=== PATIENT | female | born 1980 | race Caucasian/White ===

== ENCOUNTER 2021-10-13 16:01 | Inpatient (IN) | payer OTHER ==
[~2021-10-13] VITALS: Ht 160 cm; Wt 63.7 kg
[2021-10-13 17:08] LABS: BASOPHILS ABSOLUTE AUTO 0.05 K/mm3 (0.00-0.23); BASOPHILS PERCENT AUTO 1 % (0-2); EOSINOPHILS ABSOLUTE AUTO 0.13 K/mm3 (0.00-0.68); EOSINOPHILS PERCENT AUTO 2 % (0-6); Hemoglobin 10.4 g/dL (11.5-16.0); IMMATURE GRAN ABSOLUTE AUTO 0.22 K/mm3 (0.00-0.10); IMMATURE GRAN PERCENT AUTO 3 % (0-1); LYMPHOCYTES ABSOLUTE AUTO 1.35 K/mm3 (0.84-5.20); LYMPHOCYTES PERCENT AUTO 17 % (21-46); MONOCYTES ABSOLUTE AUTO 0.52 K/mm3 (0.16-1.47); MONOCYTES PERCENT AUTO 7 % (4-13); Mean Corpuscular HGB 27.5 pg (26.0-34.0); Mean Corpuscular HGB Conc 32.5 g/dL (31.5-36.5); Mean Corpuscular Volume 85 fL (80-100); Mean Platelet Volume 10.4 fL (9.1-12.4); NEUTROPHILS ABSOLUTE AUTO 5.72 K/mm3 (1.96-9.15); NEUTROPHILS PERCENT AUTO 72 % (41-73); Platelet Count 362 K/mm3 (150-400); RDW Coefficient Variation 14.5 % (11.7-14.2); RDW Standard Deviation 44.7 fL (35.1-46.3); Red Blood Cell Count 3.78 M/mm3 (3.80-5.20); White Blood Cell Count 7.99 K/mm3 (4.00-11.30)
[2021-10-13 17:40] LABS: Magnesium, Blood 2.4 mg/dL (1.6-2.4)
[2021-10-13 17:55] LABS: Albumin, Blood 2.9 g/dL (3.4-5.0); Albumin/Globulin Ratio 0.8 (0.8-1.8); Bilirubin, Total 0.4 mg/dL (0.1-1.0); Globulin, Blood 3.5 g/dL (2.2-4.0); Phosphorus, Blood 6.7 mg/dL (2.5-4.9); Potassium, Blood 4.3 mmol/L (3.5-5.5); Total Protein, Blood 6.4 g/dL (6.4-8.2)
--- NOTE | 2021-10-13 19:13 | NUR ---
SHIFT SUMMARY PATIENT IS ALERT AND ORIENTED X4. PATIENT IS A DIRECT ADMIT FROM [facility] IN [place]. PATIENT IS BEING ADMITTED FOR ACUTE RENAL FAILURE. PATIENT HAS COMPLAINED OF PAIN IN FLANK AREA. PATIENT IS ON TELE, NORMAL SINUS RHYTHM. PATIENT HAS HAD NO COMPLAINTS OF SOB, PATIENT DOES REPORT NAUSEA BUT NO VOMITTING. VITAL SIGNS REVIEWED. BED IN LOCKED AND LOWEST POSITION. CALL LIGHT IN PLACE. SHIFT REPORT GIVEN.
[2021-10-13] MEDS ORDERED: HYDROCODONE-AC1 EAC5 PO (20:12)
[2021-10-13 21:45] LABS: Source, Urine Clean Catch
[2021-10-13 21:57] LABS: Bilirubin, Urine Neg (Neg); Blood, Urine 3+ (Neg); Glucose Qualitative, Urine Neg (Neg); Ketones, Urine Neg (Neg); Leukocyte Esterase, Urine Neg (Neg); Nitrite, Urine Neg (Neg); Protein, Urine 1+ (Neg); Urobilinogen, Urine NORM (Normal)
[2021-10-13 23:22] LABS: Appearance, Urine Hazy (Clear); Color, Urine Yellow (P-Yellow)
[2021-10-13 23:28] LABS: Bacteria Few /hpf; Granular Casts 0-2 /lpf (0); Squamous Epithelial Cells Few /hpf (Few)
[2021-10-14 05:13] LABS: Hematocrit 27.5 % (33.0-51.0)
[2021-10-14 05:58] LABS: CPK Creatine Kinase 16 U/L (26-193); Magnesium, Blood 2.2 mg/dL (1.6-2.4)
[2021-10-14 06:12] LABS: Albumin, Blood 2.4 g/dL (3.4-5.0); Anion Gap 10 mmol/L (6-16); Blood Urea Nitrogen 97 mg/dL (8-24); Bun/Creatinine Ratio 8.2 (12.0-20.0); CO2, Blood 21 mmol/L (21-32); Calcium, Blood 8.2 mg/dL (8.5-10.1); Chloride, Blood 109 mmol/L (98-108); Glomerular Filtration Rate 4 (60-); Glucose, Blood 116 mg/dL (70-99); Phosphorus, Blood 6.8 mg/dL (2.5-4.9); Potassium, Blood 4.5 mmol/L (3.5-5.5); Sodium, Blood 140 mmol/L (136-145)
--- NOTE | 2021-10-14 06:41 | NUR ---
41 year old Female with lupsus sle dx 3.5 years ago has AKF with critical high creatine 12.0 on admit & despite bicarb at 75 ml hr she still has critical high creatine 11.90 this am. PT has abd pain flank pain nausea. thor with zofran x 1 started protonix 40 mg Q day , PRN almag for heartburn x 1 & norco 5/325 mg tab 1 q 6 hrs prn given with mild helpful effect. Tyl 650 mg po x 1 for persistant headache pain with helpful effect. PT also has rale folliculitis disease & had recently tried clindamycin & riphamphin to tx. Recent new tattoos.
--- NOTE | 2021-10-14 10:51 | NUR ---
Echocardiogram completed.
[2021-10-14] MEDS ORDERED: CELEXA40 M1 PO (16:36)
--- NOTE | 2021-10-14 18:32 | NUR ---
DAYSHIFT SUMMARY Pt resting in bed all thift, c/o nausea no emesis noted, and severe flank, abdomen, & migraine. PRN hydrocodone/tylenol given, pt reports uneffective. Bicabr IV fluids infusing, via left hand/IV. Phoslo gels given TID. Tele in placed. Vitals stable.
[2021-10-14 22:13] LABS: Eosinophils-Raw #,Urine 0
[2021-10-15 04:53] LABS: Hemoglobin 9.3 g/dL (11.5-16.0)
[2021-10-15 05:26] LABS: Magnesium, Blood 2.2 mg/dL (1.6-2.4)
[2021-10-15 05:33] LABS: Albumin, Blood 2.6 g/dL (3.4-5.0); Anion Gap 11 mmol/L (6-16); Blood Urea Nitrogen 98 mg/dL (8-24); Bun/Creatinine Ratio 8.4 (12.0-20.0); CO2, Blood 22 mmol/L (21-32); Calcium, Blood 8.5 mg/dL (8.5-10.1); Chloride, Blood 106 mmol/L (98-108); Glomerular Filtration Rate 4 (60-); Glucose, Blood 100 mg/dL (70-99); Phosphorus, Blood 7.1 mg/dL (2.5-4.9); Potassium, Blood 4.7 mmol/L (3.5-5.5); Sodium, Blood 139 mmol/L (136-145)
--- NOTE | 2021-10-15 05:54 | NUR ---
41 year old Female with lupus & rare follicular disease continues with slowly declining creatinine level from 12.0 to 11.60 with several days of treatments. PT tolerating some diet craving spicy food but snacking. Reports no BM x 13 days abd sl firm & distended. Passing some flatus. Medicated for flank & upper abd pain & kpad used. Medicated x 1 for nausea. On BID IV protonix.
[2021-10-15 07:05] LABS: Amylase, Blood 53 U/L (25-115)
--- NOTE | 2021-10-15 09:46 | NUR ---
PATIENT COMPLAINING OF NAUSEA AND PAIN. MEDICATED WITH IV ZOFRAN. GOING TO GIVE IT TIME TO KICK IN THEN GO BACK TO ASSESS PAIN TO GIVE THE PO NORCO.
[2021-10-15 10:04] LABS: Creatinine, Blood 11.6 mg/dL (0.40-1.00)
--- NOTE | 2021-10-15 11:04 | NUR ---
WENT IN TO CHECK ON PATIENT. SHE STATED THAT THE ZOFRAN DID NOT HELP. PROVIDED HER WITH WARM BLANKETS ANDF ASSISTED HER TO THE BATHROOM. 300MLS OF URINE OUT.
[2021-10-15 12:38] LABS: Creatinine, Blood 11.6 mg/dL (0.40-1.00)
--- NOTE | 2021-10-15 14:47 | NUR ---
PT STILL FEELING NAUSEATED. DOSED HER WITH IV ZOFRAN
--- NOTE | 2021-10-15 18:08 | NUR ---
SHIFT SUMMARY: PATIENT ALERT AND ORIENTED X4. SHE HAS PUT OUT A TOTAL OF 1100MLS OF URINE THIS SHIFT. SHE HAS HAD CONSTANT NAUSEA ALL SHIFT. SHE GOT 2 DOSES OF IV ZOFRAN WHICH HELPED HER SOME. SHE HAS HAD FLANK PAIN BUT COULD NOT TAKE THE PO NORCO DUE TO HER NAUSEA. A NEW BAG OF SODIUM BICARB WAS HUNG AT 1805. PT IV DC'D DUE TO REDNESS AND TENDERNESS. A NEW IV WAS PLACE IN THE LEFT WRIST. SHE HAS BEEN VERY PLEASANT AND COOPERATIVE WITH CARE. BEB IN LOWEST POSITION. CALL LIGHT IN REACH. WILL CONTINUE TO MONITOR TILL END OF SHIFT.
--- NOTE | 2021-10-15 18:21 | NUR ---
PT TO HAVE PERMACATH PLACED IN AM
--- NOTE | 2021-10-15 18:34 | NUR ---
REVIEWED NOTES AND ASSESSMENT DOCUMENTATION CHARTED BY INGRID, STUDENT NURSE AND AGREE WITH HER FINDINGS.
--- NOTE | 2021-10-16 04:16 | NUR ---
patient with VSS on RA overnight. Up independently in the room. Void QS. Patient with abdominal pain and nausea overnight . See MAR. Patient NPO at UT for temp dialysis catheter placement today. Patient states understanding of NPO and upcoming procedure.
[2021-10-16 05:53] LABS: Hematocrit 27.3 % (33.0-51.0); Hemoglobin 9.1 g/dL (11.5-16.0)
[2021-10-16 06:26] LABS: Magnesium, Blood 2.1 mg/dL (1.6-2.4)
[2021-10-16 06:39] LABS: Albumin, Blood 2.4 g/dL (3.4-5.0); Anion Gap 10 mmol/L (6-16); Blood Urea Nitrogen 96 mg/dL (8-24); Bun/Creatinine Ratio 8.6 (12.0-20.0); CO2, Blood 24 mmol/L (21-32); Calcium, Blood 8.4 mg/dL (8.5-10.1); Chloride, Blood 105 mmol/L (98-108); Glomerular Filtration Rate 4 (60-); Glucose, Blood 92 mg/dL (70-99); Phosphorus, Blood 6.8 mg/dL (2.5-4.9); Potassium, Blood 4.6 mmol/L (3.5-5.5); Sodium, Blood 139 mmol/L (136-145)
[2021-10-16 08:12] LABS: COMPLEMENT C3, SERUM 129 mg/dL (82-167)
--- NOTE | 2021-10-16 12:48 | NUR ---
PATIENT REPORTS ALOT OF PAIN WHERE THE PORTACATH WAW INSERTERD, RUNNING UP INTO HER NECK AND ALSO REPORTS BACK PAIN. SHE WAS GIVEN A ROXICODONE FOR MANAGEMENT. PATIENT ATE LUNCH AND DID WELL WITH IT. NO NAUSEA OR VOMITING. AREA OF CATH IS A BIT SWOLLEN. VS HAVE BEEN GOOD.
--- NOTE | 2021-10-16 18:33 | NUR ---
PATIENT PAINFUL WHERE PORT WAS PLACED. VITALS AFTER PROCDURE AND DURING DIALYSIS LOOK GOOD. SHE WILL GO DOWN TO DIALYSIS TOMORROW MORNING AROUND 9AM. SHE HAS COMPLAINTS OF RIGHT HAND FEELING A LITTLE NUMB AND THINKS ITS A BIT SWOLLEN. THIS IS WHERE THE IV IS PLACED AND IT IS PATENT. SHE DID JUST RECIEVE SOME MEDICATION VIA IV, SO SHE AGREED TO WATCH THE AREA FOR A WHILE AND REPORT ANY WORSENING SX. SHE IS ALERT AND ORIENTATED, ALTHOUGH TRYING TO REST QUIETLY. SHE ATE A LITTLE AMOUNT OF DINNER AND TOLERATED THE FOOD.
--- NOTE | 2021-10-17 04:36 | NUR ---
Patient with VSS on RA overnight. Moderate c/o right upper chest pain where her dialysis catheter was placed earlier today. Called and recieved orders for an increase in pain medication. This was effective overnight. patient voiding 800cc overnight. clear yellow. up inpendently in the room. Awaiting dualysis later today.
[2021-10-17 05:33] LABS: Hematocrit 27.7 % (33.0-51.0)
[2021-10-17 05:53] LABS: Albumin, Blood 2.6 g/dL (3.4-5.0); Anion Gap 6 mmol/L (6-16); Blood Urea Nitrogen 56 mg/dL (8-24); Bun/Creatinine Ratio 7.7 (12.0-20.0); CO2, Blood 29 mmol/L (21-32); Calcium, Blood 8.5 mg/dL (8.5-10.1); Chloride, Blood 104 mmol/L (98-108); Creatinine, Blood 7.27 mg/dL (0.40-1.00); Glomerular Filtration Rate 7 (60-); Glucose, Blood 116 mg/dL (70-99); Phosphorus, Blood 5.1 mg/dL (2.5-4.9); Potassium, Blood 4.5 mmol/L (3.5-5.5); Sodium, Blood 139 mmol/L (136-145)
[2021-10-17 07:10] LABS: HBSAG SCREEN Negative (Negative); HCV AB 0.1 (0.0-0.9); HEP A AB, IGM Negative (Negative); HEP B CORE AB, IGM Negative (Negative)
--- NOTE | 2021-10-17 17:10 | NUR ---
PATIENT WAS BROUGHT DOWN TO DIALYSIS THIS AM. TOLERATED WELL. STILL HAVING PAIN IN CLAVICLE AREA WHERE PORT IS PLACED. PAIN MED X 2 TODAY. ATARAX WAS ADDED TO THE MEDICATION LIST AND THIS PRN WAS USED AT 1300 TODAY. PATIENT APPEARD MORE CALM AFTERWARD. SHE HAS HAD COMPANY AND ATE SOME FOOD FROM [employer]. SHE REQUESTED HER CELEXA BE MOVED TO BED TIME, SO THIS WAS DONE. LAST HGB 9.0 HCT 27.2, GFR UP TO 7 (FROM 4). PATIENT APPEARS PALE AND IS FATIGUED. LOOKING FORWARD TO NOT HAVING DIALYSIS TOMORROW.
[2021-10-17 18:10] LABS: ANTI-DSDNA ANTIBODIES 1 IU/mL (0-9)
--- NOTE | 2021-10-18 04:05 | NUR ---
Patient with VSS on RA overnight. Up independently in the room. Voiding clear, yellow urine. Minimal c/o pain at dialysis catheter insertion site. Patient states she feel exhausted and cannot seem to wake up ever since yesterdays dialysis. I reassured her that dialysis takes getting used to and that it would get better. Patient states she is hungry as she was too exhausted to eat all day after dialysis. Snacks provided. Patient worried about her lack of bowel movements. Miralax offered but refused. I suggested she ask for it again with her morning medications. Abdomen soft with normal bowel sounds.
[2021-10-18 05:10] LABS: Hematocrit 28.1 % (33.0-51.0)
[2021-10-18 05:51] LABS: Albumin, Blood 2.8 g/dL (3.4-5.0); Anion Gap 6 mmol/L (6-16); Blood Urea Nitrogen 29 mg/dL (8-24); Bun/Creatinine Ratio 5.9 (12.0-20.0); CO2, Blood 33 mmol/L (21-32); Calcium, Blood 8.9 mg/dL (8.5-10.1); Chloride, Blood 100 mmol/L (98-108); Glomerular Filtration Rate 11 (60-); Glucose, Blood 106 mg/dL (70-99); Magnesium, Blood 2.2 mg/dL (1.6-2.4); Potassium, Blood 4.4 mmol/L (3.5-5.5); Sodium, Blood 139 mmol/L (136-145)
--- NOTE | 2021-10-18 16:47 | NUR ---
SHIFT SUMMARY PT A&O X 4. VSS. SHE STARTED THE SHIFT WITH N/V. MEDICATED WITH ZOFRAN AND AN HOUR LATER WITH PHENERGAN PER EMAR. SHE ALSO C/O R CHEST WALL & SHOULDER PAIN RELATED TO THE TDC SITE. PLACED CALL TO MD REQUESTING IV PAIN MEDS D/T CONTINUED NAUSEA. MD PROVIDED ORDER FOR A SMALL DOSE OF FENTANYL. SHE REFUSED HER MEDS THIS MORNING NOT WANTING TO STIMULATE NAUSEA. SHE FOUND A COMFORTABLE POSITION IN BED TO REMAIN IN AND DID NOT WANT TO MOVE UNTIL THE NAUSEA PASSED. SHE APPEARED TO BE RESTING, EYES CLOSED AND RESP EVEN & UNLABORED UNTIL EARLY AFTERNOON. SHE WAS THEN READY TO TAKE HER MEDS AND ENGAGE MORE WITH STAFF. SHE BEGAN ASKING FOR FOOD. SHE DID TAKE BITES OF HER LUNCH. SHE IS INDEPENDENT IN THE ROOM. NO DIALYSIS WAS SCHEDULED FOR TODAY.
--- NOTE | 2021-10-19 04:43 | NUR ---
Patient with VSS on RA overnight. patient feeling better overnight. Up in bathroom washing up. encouraged her to ambulate out in the galvez. Minimal pain in right chest port insertion site. Voiding clear, yellow urine, QS. Patient oral intake improved overnight without c/o nausea. patient anxious about dialysis today and how she will feel after. I encouraged her to ask for her anti anxiety medications prior to dialysis. patient will DC to home when dialysis can be set up.
[2021-10-19 05:29] LABS: Hematocrit 28.1 % (33.0-51.0); Hemoglobin 8.8 g/dL (11.5-16.0)
[2021-10-19 05:47] LABS: Albumin, Blood 2.8 g/dL (3.4-5.0); Anion Gap 8 mmol/L (6-16); Blood Urea Nitrogen 37 mg/dL (8-24); Bun/Creatinine Ratio 6.6 (12.0-20.0); CO2, Blood 31 mmol/L (21-32); Calcium, Blood 8.8 mg/dL (8.5-10.1); Chloride, Blood 101 mmol/L (98-108); Creatinine, Blood 5.58 mg/dL (0.40-1.00); Glomerular Filtration Rate 9 (60-); Glucose, Blood 107 mg/dL (70-99); Phosphorus, Blood 4.2 mg/dL (2.5-4.9); Potassium, Blood 4.1 mmol/L (3.5-5.5); Sodium, Blood 140 mmol/L (136-145)
[2021-10-19 15:31] LABS: Hematocrit 30.1 % (33.0-51.0); Hemoglobin 9.7 g/dL (11.5-16.0); Mean Corpuscular HGB 28.1 pg (26.0-34.0); Mean Corpuscular HGB Conc 32.2 g/dL (31.5-36.5); Mean Corpuscular Volume 87 fL (80-100); Mean Platelet Volume 10.2 fL (9.1-12.4); Platelet Count 406 K/mm3 (150-400); RDW Coefficient Variation 14.1 % (11.7-14.2); RDW Standard Deviation 43.9 fL (35.1-46.3); Red Blood Cell Count 3.45 M/mm3 (3.80-5.20)
[2021-10-19 15:48] LABS: International Normalized Ratio 0.98; Prothrombin Time Results 10.3 Sec (9.7-11.5)
[2021-10-19 16:14] LABS: BAND PERCENT MAN 1 % (0-8); BASOPHILS PERCENT MAN 0 % (0-2); EOSINOPHILS ABSOLUTE MAN 0.14 K/mm3 (0.00-0.68); EOSINOPHILS PERCENT MAN 2 % (0-6); LYMPHOCYTES ABSOLUTE MAN 1.19 K/mm3 (0.84-5.20); LYMPHOCYTES PERCENT MAN 17 % (21-46); MONOCYTES ABSOLUTE MAN 0.35 K/mm3 (0.16-1.47); MONOCYTES PERCENT MAN 5 % (4-13); NEUTROPHILS ABSOLUTE MAN 5.32 K/mm3 (1.96-9.15); SEG NEUTROPHILS PERCENT MAN 75 % (41-73); TOTAL CELLS COUNTED 100
--- NOTE | 2021-10-19 17:26 | NUR ---
DAYSHIFT SUMMARY Pt had dialysis this morning, reported this session went better & she did not "shake during dialysis". Reports pain at incision site above permacath & permacath. Incision site on right clavicle is CDI, covered with dermabond. Permacath dressing CDI. New IV placed this morning on left/forearm, NS locked. Reports nausea throughout the day, no emesis noted. Zofran & Phenergan given for N/V, PRN effective. Pt reported to MD that pain meds were causing constipation & she was afraid to take them. MD stated pt could try using only tylenol for pain, pt agreed. Later pt requested pain pill for pain, she stated the MD misunderstood her, she wants pain pills, but does not want "IV drugs and pain pills together, they both are too much and knock me out". Reported conversation to MD, Hydrocodone PRN restarted. Dr. Morin called & reported pt will remain hospitalized tonight & kidney biopsy will be done tommorrow. Tele DC'd, adhesive stickers caused redness, small area of skin is irritated & open from adhesive, MD aware. Vitals stable this shift.
--- NOTE | 2021-10-20 04:45 | NUR ---
SHIFT SUMMARY NOC: PT UP AD VIRIDIANA IN ROOM. PT TO HAVE KIDNEY BIOPSY TODAY AT 1500. PT HAS BEEN NPO SINCE MIDNIGHT EXCEPT SIPS WITH MEDS. PT HAS BEEN HAVING SORE THROAT AND RIGHT EAR PAIN. SCANT CLEAR DRAINAGE OUT OF RIGHT EAR PER PATIENT. ICE PACK APPLIED TO EAR AND PRN PAIN MEDICATION GIVEN WITH POSITIVE EFFECT.
[2021-10-20 04:56] LABS: Hemoglobin 9.3 g/dL (11.5-16.0)
[2021-10-20 05:24] LABS: Albumin, Blood 3.1 g/dL (3.4-5.0); Anion Gap 7 mmol/L (6-16); Blood Urea Nitrogen 21 mg/dL (8-24); Bun/Creatinine Ratio 5.3 (12.0-20.0); CO2, Blood 33 mmol/L (21-32); Chloride, Blood 100 mmol/L (98-108); Creatinine, Blood 3.95 mg/dL (0.40-1.00); Glomerular Filtration Rate 14 (60-); Glucose, Blood 94 mg/dL (70-99); Magnesium, Blood 2.1 mg/dL (1.6-2.4); Phosphorus, Blood 4.1 mg/dL (2.5-4.9); Potassium, Blood 4.2 mmol/L (3.5-5.5); Sodium, Blood 140 mmol/L (136-145)
[2021-10-20 09:00] LABS: BASOPHILS ABSOLUTE AUTO 0.08 K/mm3 (0.00-0.23); BASOPHILS PERCENT AUTO 1 % (0-2); EOSINOPHILS ABSOLUTE AUTO 0.22 K/mm3 (0.00-0.68); EOSINOPHILS PERCENT AUTO 3 % (0-6); IMMATURE GRAN ABSOLUTE AUTO 0.05 K/mm3 (0.00-0.10); IMMATURE GRAN PERCENT AUTO 1 % (0-1); LYMPHOCYTES ABSOLUTE AUTO 2.38 K/mm3 (0.84-5.20); LYMPHOCYTES PERCENT AUTO 32 % (21-46); MONOCYTES ABSOLUTE AUTO 0.52 K/mm3 (0.16-1.47); MONOCYTES PERCENT AUTO 7 % (4-13); Mean Corpuscular HGB 28.2 pg (26.0-34.0); Mean Corpuscular HGB Conc 31.4 g/dL (31.5-36.5); Mean Corpuscular Volume 90 fL (80-100); Mean Platelet Volume 10.9 fL (9.1-12.4); NEUTROPHILS ABSOLUTE AUTO 4.23 K/mm3 (1.96-9.15); NEUTROPHILS PERCENT AUTO 57 % (41-73); Platelet Count 433 K/mm3 (150-400); RDW Standard Deviation 45.4 fL (35.1-46.3); Red Blood Cell Count 3.33 M/mm3 (3.80-5.20); White Blood Cell Count 7.48 K/mm3 (4.00-11.30)
[2021-10-20 12:38] LABS: ANA DIRECT Negative (Negative); ANTIMYELOPEROXIDASE (MPO) ABS <9.0 U/mL (0.0-9.0); ANTIPROTEINASE 3 (PR-3) ABS <3.5 U/mL (0.0-3.5); ATYPICAL PANCA <1:20 titer (Neg:<1:20); CYTOPLASMIC (C-ANCA) <1:20 titer (Neg:<1:20); PERINUCLEAR (P-ANCA) <1:20 titer (Neg:<1:20)
--- NOTE | 2021-10-20 16:25 | NUR ---
DAY SHIFT SUMMARY 41 YR OLD FEMALE PT WITH ACUTE KIDNEY FAILURE. PT WENT FOR RENAL BIOPSY THIS SHIFT, HEPARIN HELD. BIOPSY AND FOLLOW UP SCAN COMPLETE. A/O X4 INDEPENDENT IN ROOM. MEDICATED FOR PAIN PER EMAR, C/O PAIN TO RT FLANK AREA (SITE OF BIOPSY) AND TO RIGHT SIDE OF NECK INTO EAR (SITE OF PERMACATH FOR DIALYSIS - RECENTLY PLACED). PT ON RA AND A REGULAR DIET POST PROCEEDURE. CALL LIGHT WITHIN REACH AND ABLE TO CALL APPROPRIATELY.
[2021-10-21 04:58] LABS: BASOPHILS ABSOLUTE AUTO 0.05 K/mm3 (0.00-0.23); BASOPHILS PERCENT AUTO 1 % (0-2); EOSINOPHILS ABSOLUTE AUTO 0.17 K/mm3 (0.00-0.68); EOSINOPHILS PERCENT AUTO 2 % (0-6); Hematocrit 32.4 % (33.0-51.0); Hemoglobin 10.4 g/dL (11.5-16.0); IMMATURE GRAN ABSOLUTE AUTO 0.06 K/mm3 (0.00-0.10); IMMATURE GRAN PERCENT AUTO 1 % (0-1); LYMPHOCYTES ABSOLUTE AUTO 1.35 K/mm3 (0.84-5.20); LYMPHOCYTES PERCENT AUTO 17 % (21-46); MONOCYTES ABSOLUTE AUTO 0.67 K/mm3 (0.16-1.47); MONOCYTES PERCENT AUTO 9 % (4-13); Mean Corpuscular HGB 28.1 pg (26.0-34.0); Mean Corpuscular HGB Conc 32.1 g/dL (31.5-36.5); Mean Corpuscular Volume 88 fL (80-100); Mean Platelet Volume 10.2 fL (9.1-12.4); NEUTROPHILS ABSOLUTE AUTO 5.45 K/mm3 (1.96-9.15); NEUTROPHILS PERCENT AUTO 70 % (41-73); Platelet Count 403 K/mm3 (150-400); RDW Coefficient Variation 13.9 % (11.7-14.2); White Blood Cell Count 7.75 K/mm3 (4.00-11.30)
[2021-10-21 05:12] LABS: Albumin, Blood 3.3 g/dL (3.4-5.0); Anion Gap 7 mmol/L (6-16); Blood Urea Nitrogen 25 mg/dL (8-24); Bun/Creatinine Ratio 5.8 (12.0-20.0); CO2, Blood 32 mmol/L (21-32); Calcium, Blood 9.5 mg/dL (8.5-10.1); Chloride, Blood 99 mmol/L (98-108); Creatinine, Blood 4.33 mg/dL (0.40-1.00); Glomerular Filtration Rate 13 (60-); Glucose, Blood 93 mg/dL (70-99); Phosphorus, Blood 4.1 mg/dL (2.5-4.9); Potassium, Blood 4.4 mmol/L (3.5-5.5); Sodium, Blood 138 mmol/L (136-145)
--- NOTE | 2021-10-21 06:43 | NUR ---
SHIFT SUMMARY NOC: PT SLEPT MOST OF SHIFT. PRN NORCO GIVEN FOR PAIN TO RIGHT BACK/FLANK KIDNEY BIOPSY SITE. PT WOKE FEELING NAUSEA. PRN ZOFRAN GIVEN WITH SANDWHICH AND SODA. NO ADVERSE EVENTS ON MEDICAL ONCOLOGY PHYSICIAN.
[2021-10-21 15:06] LABS: SARS-Cov-2 (COVID-19) PCR, MMC NEGATIVE (NEGATIVE)
--- NOTE | 2021-10-21 19:23 | NUR ---
PT HAS BEEN RESTING IN BED. SHE RECIEVED DIALYSIS TODAY. THEN TOOK A SHOWER AND CHANGED. SHE IS NOW VERY TIRED AND PAINFUL. MEDICATED PER JUL. SHE IS STILL WAITING TO HEAR WHEN SHE WILL LEAVE AND RECIEVE DIALYSIS. SHE WILL BE GETTING A CHAIR IN [place], BUT PER BLAINE THIS PM SHE WAS TOLD SHE WOULD NOT LEAVE UNTIL NEXT TUESDAY. PT IS ANXIOUS TO RETURN HOME.
--- NOTE | 2021-10-22 05:41 | NUR ---
SHIFT SUMMARY: NO SIGNIFICANT EVENTS ON NOC. PATIENT NAUSEA AND PAIN TREATED PER EMAR. PATIENT VOICED FRUSTRATION REGARDING GETTING DAILYSIS CHAIR AND CONFUSION WITH NICOL VALLEJO. SHE EXPRESSES "I'M TIRED OF BEING COOPED UP IN THE HOSPITAL" PATIENT IS EAGER TO DC AND HAVE OUTPATINET DIALYSIS CHAIR.
[2021-10-22 05:50] LABS: Hematocrit 29.7 % (33.0-51.0); Hemoglobin 9.5 g/dL (11.5-16.0)
[2021-10-22 06:14] LABS: Albumin, Blood 3.1 g/dL (3.4-5.0); Anion Gap 6 mmol/L (6-16); Blood Urea Nitrogen 19 mg/dL (8-24); Bun/Creatinine Ratio 5.9 (12.0-20.0); CO2, Blood 33 mmol/L (21-32); Chloride, Blood 99 mmol/L (98-108); Creatinine, Blood 3.21 mg/dL (0.40-1.00); Glomerular Filtration Rate 18 (60-); Glucose, Blood 84 mg/dL (70-99); Magnesium, Blood 2.1 mg/dL (1.6-2.4); Potassium, Blood 3.9 mmol/L (3.5-5.5); Sodium, Blood 138 mmol/L (136-145)
--- NOTE | 2021-10-22 17:05 | NUR ---
NO ACUTE CHANGES AT THIS TIME. PT DID NOT RECIEVE DIALYSIS TODAY. PT INDEPENDENT IN ROOM AND CALLS APPROPRIATELY. PT HAS HAD PAIN WITH NEW PERMA CATH SITE AND IS TREATED PER EMAR. NO DISTRESS NOTED CALL LIGHT WITHIN REACH WILL CONTINUE TO MONITOR.
--- NOTE | 2021-10-23 05:26 | NUR ---
SHIFT SUMMARY ASSUMED CARE OF PT AROUND 1900. PT IS A/OX4. HEART SOUNDS REGULAR, LUNG SOUNDS CLEAR. PT WAS INDEPENDENT IN ROOM. PT TOOK A SHOWER THIS PM. PT C/O PAIN IN HER CLAVICAL WHERE THE DIALYSIS PORT WAS AND IN HER BACK WHERE THE BIOPSY WAS TAKEN. MEDICATED PER EMAR. PT SLEPT T/O THE NIGHT.
[2021-10-23 05:35] LABS: Hematocrit 29.8 % (33.0-51.0); Hemoglobin 9.3 g/dL (11.5-16.0)
[2021-10-23 05:56] LABS: Albumin, Blood 3.1 g/dL (3.4-5.0); Anion Gap 4 mmol/L (6-16); Blood Urea Nitrogen 26 mg/dL (8-24); Bun/Creatinine Ratio 7.9 (12.0-20.0); CO2, Blood 32 mmol/L (21-32); Calcium, Blood 9.2 mg/dL (8.5-10.1); Chloride, Blood 102 mmol/L (98-108); Creatinine, Blood 3.31 mg/dL (0.40-1.00); Glomerular Filtration Rate 17 (60-); Glucose, Blood 88 mg/dL (70-99); Phosphorus, Blood 4.1 mg/dL (2.5-4.9); Potassium, Blood 3.8 mmol/L (3.5-5.5); Sodium, Blood 138 mmol/L (136-145)
--- NOTE | 2021-10-23 18:43 | NUR ---
SHIFT SUMMARY PATIENT A&OX4. PLEASANT AND COOPERATIVE WITH CARE. C/O PAIN IN BACK, RIGHT EAR AND AT DIALYSIS PORT SITE. MEDICATED PER JUL. RECEIVED DIALYSIS THIS AFTERNOON. TOLERATED WELL BUT TIRED AFTERWARDS. AWAITING CHAIR TIME OUTPATIENT WITH THE PLAN TO D/C ON 10/27. NO SIGNIFICANT EVENTS. WILL CONTINUE TO MONITOR.
--- NOTE | 2021-10-23 19:12 | NUR ---
NURSE NOTE PATIENT STATED IV BEGINNING TO HURT AND THAT SHE WANTS IT TAKEN OUT. PER PATIENT REQUEST IV TAKEN OUT.
--- NOTE | 2021-10-24 04:17 | NUR ---
HELP DESK ASSISTANT SUMMARY HAS BEEN RESTING QUIETLY WITH FEW INTERRUPTIONS. VOICED PAIN OF MEDIPORT SITE. NOTE SLIGHT SWELLING AT INSERTION POINT, BUT OTHERWISE NO NOTED ANOMALIES. NORCO PO ADMINISTERED - APPEARS TO BE TAKING IT ABOUT EVERY 6 HRS. ALERT AND ORIENTED, NO NOTED DECREASED SENSATON OR USE OF ALL 4 EXT. VSS. CALL LIGHT IN REACH. WILL CONT TO MONITOR
[2021-10-24 05:54] LABS: Hematocrit 30.5 % (33.0-51.0); Hemoglobin 9.5 g/dL (11.5-16.0)
[2021-10-24 06:22] LABS: Albumin, Blood 3.1 g/dL (3.4-5.0); Anion Gap 6 mmol/L (6-16); Blood Urea Nitrogen 22 mg/dL (8-24); Bun/Creatinine Ratio 8.7 (12.0-20.0); CO2, Blood 30 mmol/L (21-32); Calcium, Blood 9.3 mg/dL (8.5-10.1); Chloride, Blood 102 mmol/L (98-108); Creatinine, Blood 2.54 mg/dL (0.40-1.00); Glomerular Filtration Rate 24 (60-); Glucose, Blood 95 mg/dL (70-99); Magnesium, Blood 2.3 mg/dL (1.6-2.4); Phosphorus, Blood 3.5 mg/dL (2.5-4.9); Potassium, Blood 4.5 mmol/L (3.5-5.5); Sodium, Blood 138 mmol/L (136-145)
--- NOTE | 2021-10-24 16:50 | NUR ---
SHIFT SUMMARY; NO ACUTE CHANGES IN CONDITION NOTED FOR THIS PATIENT TODAY. SHE DID NOT RECEIVE DIALYSIS TODAY. SHE WILL HAVE DIALYSIS TOMORROW. PATIENT COMPLAINS OF PAIN THIS AM AND AGAIN THIS AFTERNOON. MEDICATED WITH NORCO 2 TABLETS WITH SUCCESS IN DECREASING HER PAIN. SHE IS AO X 4 DURING DAY. COOPERATIVE WITH CARE. VITAL SIGNS ARE WNL. WILL CONTINUE TO MONITOR THIS PATIENT CLOSELY FOR ANY WANTS OR NEEDS UNTIL HAND OFF AT SHIFT CHANGE TO [facility] SHIFT RN.
--- NOTE | 2021-10-25 04:16 | NUR ---
SHIFT SUMMARY NO ACUTE CHANGES THIS SHIFT. AOX4. VSS. DENIES N/V OR DYSPNEA. REPORTS / BURNING PAIN R SIDE NECK & COLLAR BONE WHERE PERMACATH PLACED. MEDICATED 1X c 2 TABS NORCO PER EMAR & PT ABLE TO REST WELL T/O NIGHT. IND IN RM. AWAITING DIALYSIS CHAIR. CALL LIGHT IN REACH. WILL MONITOR.
[2021-10-25 05:50] LABS: BASOPHILS ABSOLUTE AUTO 0.04 K/mm3 (0.00-0.23); BASOPHILS PERCENT AUTO 1 % (0-2); EOSINOPHILS PERCENT AUTO 4 % (0-6); Hematocrit 30.6 % (33.0-51.0); Hemoglobin 9.5 g/dL (11.5-16.0); IMMATURE GRAN ABSOLUTE AUTO 0.06 K/mm3 (0.00-0.10); IMMATURE GRAN PERCENT AUTO 1 % (0-1); LYMPHOCYTES ABSOLUTE AUTO 1.58 K/mm3 (0.84-5.20); LYMPHOCYTES PERCENT AUTO 30 % (21-46); MONOCYTES ABSOLUTE AUTO 0.53 K/mm3 (0.16-1.47); MONOCYTES PERCENT AUTO 10 % (4-13); Mean Corpuscular Volume 90 fL (80-100); NEUTROPHILS ABSOLUTE AUTO 2.89 K/mm3 (1.96-9.15); NEUTROPHILS PERCENT AUTO 55 % (41-73); Platelet Count 273 K/mm3 (150-400); RDW Coefficient Variation 14.6 % (11.7-14.2); Red Blood Cell Count 3.39 M/mm3 (3.80-5.20)
[2021-10-25 06:14] LABS: Albumin, Blood 3.2 g/dL (3.4-5.0); Anion Gap 7 mmol/L (6-16); Blood Urea Nitrogen 30 mg/dL (8-24); Bun/Creatinine Ratio 11.1 (12.0-20.0); CO2, Blood 29 mmol/L (21-32); Calcium, Blood 9.3 mg/dL (8.5-10.1); Chloride, Blood 104 mmol/L (98-108); Glomerular Filtration Rate 22 (60-); Glucose, Blood 95 mg/dL (70-99); Magnesium, Blood 2.3 mg/dL (1.6-2.4); Phosphorus, Blood 3.8 mg/dL (2.5-4.9); Potassium, Blood 4.2 mmol/L (3.5-5.5); Sodium, Blood 140 mmol/L (136-145)
--- NOTE | 2021-10-25 17:47 | NUR ---
SHIFT SUMMARY PT A&O X4 AND IN PLEASENT MOOD. DIALYSIS COMPLETE THIS SHIFT. PT IND IN ROOM W/ STEADY GAIT. PAIN MEDICATED PER EMAR. TOLERATING PO INTAKE WELL. CALL LIGHT W/IN REACH. NO IV. VSS. WAITING OUTPATIENT DIALYSIS CHAIR @ THIS TIME IN [place].
[2021-10-26 05:47] LABS: Hematocrit 31.3 % (33.0-51.0); Hemoglobin 9.8 g/dL (11.5-16.0)
--- NOTE | 2021-10-26 05:47 | NUR ---
SHIFT SUMMARY NO ACUTE CHANGES THIS SHIFT. AOX4. DENIES N/V OR DYSPNEA. REPORTS -12/30 PAIN IN R SIDE OF NECK WHERE PERMACATH IS PLACED, MEDICATED 2X c NORCO & PT ABLE TO SLEEP WELL T/O NIGHT. VSS. PLAN TO DC ON 10/27. CALL LIGHT IN YADY & PT ABLE TO MAKE NEEDS KNOWN.
[2021-10-26 06:35] LABS: Albumin, Blood 3.2 g/dL (3.4-5.0); Anion Gap 7 mmol/L (6-16); Blood Urea Nitrogen 21 mg/dL (8-24); CO2, Blood 31 mmol/L (21-32); Calcium, Blood 9.2 mg/dL (8.5-10.1); Chloride, Blood 101 mmol/L (98-108); Creatinine, Blood 2.09 mg/dL (0.40-1.00); Glomerular Filtration Rate 30 (60-); Glucose, Blood 103 mg/dL (70-99); Magnesium, Blood 2.2 mg/dL (1.6-2.4); Phosphorus, Blood 3.6 mg/dL (2.5-4.9); Sodium, Blood 139 mmol/L (136-145)
--- NOTE | 2021-10-26 08:00 | NUR ---
pt sitting up in bed awake a/ox3, pleasanat and coopertive with care, follows commands well, denies pain except soreness at the permacath site, lungs are clear t/o, on r/a, hrr, voids without diff, skin c/w/d, maew, bhargav, call light in reach.
[2021-10-26] MEDS ORDERED: PANT40 PO (12:10)
[2021-10-26] MEDS ORDERED: Calcium Acetat667 MG PO (12:13)
[2021-10-26] MEDS ORDERED: HYDROCODONE-AC1 EAC7 PO (12:14)
--- NOTE | 2021-10-26 12:30 | NUR ---
PT HAS BEEN DISCHARGED TO HOME, VERBALIZES UNDERSTANDING OF DISCHARGE INSTRUCTIONS, NEW MEDICATIONS CALLED INTO [facility] IN [facility] OR. LEFT VIA WHEELCHAIR WITH ALL BELONGINGS AND HER TRANSPORT PERSON THAT PICKED HER UP.
== END 2021-10-26 12:30 | disposition home or self-care (01) | DRG 674 ==
LOC: EDBD 16:01 → MEDS 16:01
PROVIDERS: Family Medicine; Internal Medicine Nephrology; Nurse Practitioner Acute Care; Student in an Organized Health Care Education/Training Program; ADMIT Hospitalist
PROC: 0JH63XZ Insertion of Tunneled Vascular Access Device into Chest Subcutaneous Tissue and Fascia, Percutaneous Approach (ICD-10-PCS; principal; 2021-10-17)
PROC: 02HV33Z Insertion of Infusion Device into Superior Vena Cava, Percutaneous Approach (ICD-10-PCS; 2021-10-17)
PROC: B5181ZA Fluoroscopy of Superior Vena Cava using Low Osmolar Contrast, Guidance (ICD-10-PCS; 2021-10-17)
PROC: 5A1D70Z Performance of Urinary Filtration, Intermittent, Less than 6 Hours Per Day (ICD-10-PCS; 2021-10-17)
PROC: 0TB03ZX Excision of Right Kidney, Percutaneous Approach, Diagnostic (ICD-10-PCS; 2021-10-20)
DX: N17.0 Acute kidney failure with tubular necrosis (principal); I42.9 Cardiomyopathy, unspecified; E87.2 Acidosis; Z20.822 Contact with and (suspected) exposure to COVID-19; I48.91 Unspecified atrial fibrillation; E86.0 Dehydration; L66.2 Folliculitis decalvans; R19.7 Diarrhea, unspecified; R11.2 Nausea with vomiting, unspecified; D63.1 Anemia in chronic kidney disease; R10.13 Epigastric pain; M32.9 Systemic lupus erythematosus, unspecified; Z90.49 Acquired absence of other specified parts of digestive tract; Z98.51 Tubal ligation status
CPT/HCPCS: 36415; 36558; 50200; 71045; 76770; 76937; 77001; 77012; 80053; 80069; 80074; 81001; 82150; 82550; 82565; 83520; 83690; 83735; 84100; 85007; 85014; 85018; 85025; 85027; 85060; 85610; 85730; 86037; 86038; 86160; 86225; 86317; 87086; 87205; 88305; 88313; 88329; 88346; 88348; 88350; 93306; 97161; 97530; 99152; 99153; A9270; C1750; C1769; C1894; C9113; J0881; J1644; J2250; J2405; J2550; J3010; J7030; J7040; U0004

== ENCOUNTER 2024-06-06 13:51 | Emergency (ER) | payer OTHER ==
[~2024-06-06] VITALS: Ht 160 cm; Wt 61.2 kg
[~2024-06-06 13:51] MED LIST: CELEXA40 M1 PO; Calcium Acetat667 MG PO; HYDROCODONE-AC1 EAC5 PO; HYDROCODONE-AC1 EAC7 PO; PANT40 PO
[2024-06-06 14:32] VITALS: BP 132/90
[2024-06-06 15:16] LABS: BASOPHILS ABSOLUTE AUTO 0.04 K/mm3 (0.00-0.23); BASOPHILS PERCENT AUTO 1 % (0-2); EOSINOPHILS ABSOLUTE AUTO 0.16 K/mm3 (0.00-0.68); EOSINOPHILS PERCENT AUTO 3 % (0-6); Hematocrit 36.2 % (33.0-51.0); Hemoglobin 11.1 g/dL (11.5-16.0); IMMATURE GRAN ABSOLUTE AUTO 0.02 K/mm3 (0.00-0.10); IMMATURE GRAN PERCENT AUTO 0 % (0-1); LYMPHOCYTES ABSOLUTE AUTO 1.42 K/mm3 (0.84-5.20); LYMPHOCYTES PERCENT AUTO 28 % (21-46); MONOCYTES ABSOLUTE AUTO 0.36 K/mm3 (0.16-1.47); MONOCYTES PERCENT AUTO 7 % (4-13); Mean Corpuscular HGB 25.1 pg (26.0-34.0); Mean Corpuscular HGB Conc 30.7 g/dL (31.5-36.5); Mean Corpuscular Volume 82 fL (80-100); Mean Platelet Volume 9.6 fL (9.1-12.4); NEUTROPHILS ABSOLUTE AUTO 3.01 K/mm3 (1.96-9.15); NEUTROPHILS PERCENT AUTO 60 % (41-73); Platelet Count 288 K/mm3 (150-400); RDW Coefficient Variation 12.9 % (11.7-14.2); RDW Standard Deviation 38.4 fL (35.1-46.3); Red Blood Cell Count 4.43 M/mm3 (3.80-5.20); White Blood Cell Count 5.01 K/mm3 (4.00-11.30)
[2024-06-06 15:19] LABS: CORONAVIRUS COVID-19 AG Negative (NEGATIVE); INFLUENZA A AG Negative (NEGATIVE); INFLUENZA B AG Negative (NEGATIVE)
[2024-06-06] MEDS ORDERED: NS 1,000 ML IV SCH (15:30)
[2024-06-06] MEDS ORDERED: Ketorolac Tromethamine 15mg Vial IV ONE (15:35)
[2024-06-06 15:43] LABS: Albumin, Blood 3.3 g/dL (3.4-5.0); Albumin/Globulin Ratio 0.9 (0.8-1.8); Bilirubin, Total 0.4 mg/dL (0.1-1.0); Bun/Creatinine Ratio 17.8 (12.0-20.0); Calcium, Blood 8.7 mg/dL (8.5-10.1); Creatinine, Blood 0.84 mg/dL (0.40-1.00); Globulin, Blood 3.6 g/dL (2.2-4.0); Potassium, Blood 4.4 mmol/L (3.5-5.5); Total Protein, Blood 6.9 g/dL (6.4-8.2)
[2024-06-06] MEDS ORDERED: Morphine Sulfate 4 MG/1 ML Injection IV ONE (16:55)
[2024-06-06 17:40] LABS: Source, Urine Clean Catch
[2024-06-06 17:43] LABS: Appearance, Urine Clear (Clear); Bilirubin, Urine Neg (Neg); Blood, Urine 5+ (Neg); Glucose Qualitative, Urine Neg (Neg); Ketones, Urine Neg (Neg); Leukocyte Esterase, Urine 2+ (Neg); Nitrite, Urine Neg (Neg); Protein, Urine Neg (Neg); Specific Gravity, Urine 1.005 (1.003-1.022); Urobilinogen, Urine NORM (Normal)
[2024-06-06 17:55] LABS: Color, Urine Pale Yellow (P-Yellow)
[2024-06-06 17:56] LABS: Bacteria Few /hpf; Squamous Epithelial Cells Few /hpf (Few)
[2024-06-06] MEDS ORDERED: RX Prepack 6 Tabs Oxycodone 5mg UD ONE (18:45)
[2024-06-06] MEDS ORDERED: PredniSONE 20 MG Tab PO ONE (18:45)
[2024-06-06] MEDS ORDERED: PRED20 PO (18:46)
== END 2024-06-06 19:03 | disposition home or self-care (01) ==
LOC: ER 13:51
PROVIDERS: Physician Assistant
DX: R10.9 Unspecified abdominal pain (principal); M32.14 Glomerular disease in systemic lupus erythematosus; I48.91 Unspecified atrial fibrillation; Z88.0 Allergy status to penicillin; Z88.2 Allergy status to sulfonamides; Z91.040 Latex allergy status; Z79.899 Other long term (current) drug therapy
CPT/HCPCS: 74177; 80053; 81001; 83605; 84703; 85025; 87086; 87428-QW; 96361; 96374-59; 96375; 99284-25; A9270; J1885; J2270; J7030; J7512; Q9967

== ENCOUNTER 2024-06-10 02:53 | Emergency (ER) | payer OTHER ==
[~2024-06-10] VITALS: Ht 160 cm; Wt 62.6 kg
[~2024-06-10 02:53] MED LIST changes: +PRED20 PO
[2024-06-10 03:30] VITALS: BP 144/95
[2024-06-10] MEDS ORDERED: Morphine Sulfate 4 MG/1 ML Injection IV ONE (03:50)
[2024-06-10] MEDS ORDERED: NS 1,000 ML IV SCH (03:50)
[2024-06-10] MEDS ORDERED: Ondansetron HCl 2 MG / ML 2ML Vial IV ONE (03:50)
[2024-06-10 03:52] LABS: Source, Urine Clean Catch
[2024-06-10 04:04] LABS: BASOPHILS ABSOLUTE AUTO 0.07 K/mm3 (0.00-0.23); BASOPHILS PERCENT AUTO 1 % (0-2); EOSINOPHILS ABSOLUTE AUTO 0.22 K/mm3 (0.00-0.68); EOSINOPHILS PERCENT AUTO 2 % (0-6); Hematocrit 33.8 % (33.0-51.0); Hemoglobin 10.5 g/dL (11.5-16.0); IMMATURE GRAN ABSOLUTE AUTO 0.05 K/mm3 (0.00-0.10); IMMATURE GRAN PERCENT AUTO 1 % (0-1); LYMPHOCYTES ABSOLUTE AUTO 2.83 K/mm3 (0.84-5.20); LYMPHOCYTES PERCENT AUTO 31 % (21-46); MONOCYTES ABSOLUTE AUTO 0.85 K/mm3 (0.16-1.47); MONOCYTES PERCENT AUTO 9 % (4-13); Mean Corpuscular HGB 25.2 pg (26.0-34.0); Mean Corpuscular HGB Conc 31.1 g/dL (31.5-36.5); Mean Corpuscular Volume 81 fL (80-100); Mean Platelet Volume 9.7 fL (9.1-12.4); NEUTROPHILS ABSOLUTE AUTO 5.11 K/mm3 (1.96-9.15); NEUTROPHILS PERCENT AUTO 56 % (41-73); Platelet Count 296 K/mm3 (150-400); Red Blood Cell Count 4.17 M/mm3 (3.80-5.20); White Blood Cell Count 9.13 K/mm3 (4.00-11.30)
[2024-06-10 04:06] LABS: Bilirubin, Urine Neg (Neg); Blood, Urine 4+ (Neg); Glucose Qualitative, Urine Neg (Neg); Ketones, Urine Neg (Neg); Leukocyte Esterase, Urine 2+ (Neg); Nitrite, Urine Neg (Neg); Protein, Urine 2+ (Neg); Urobilinogen, Urine NORM (Normal)
[2024-06-10 04:11] LABS: Appearance, Urine Cloudy (Clear); Color, Urine Yellow (P-Yellow)
[2024-06-10 04:18] LABS: Amorphous Mod (0-Heavy); Bacteria Many /hpf; Red Blood Cells, Urine 0-2 /hpf (0-2); Squamous Epithelial Cells Few /hpf (Few); White Blood Cells, Urine TNTC /hpf (0-5)
[2024-06-10 04:18] LABS: Albumin, Blood 3.1 g/dL (3.4-5.0); Albumin/Globulin Ratio 0.9 (0.8-1.8); Bilirubin, Total 0.3 mg/dL (0.1-1.0); Calcium, Blood 8.7 mg/dL (8.5-10.1); Creatinine, Blood 0.72 mg/dL (0.40-1.00); Globulin, Blood 3.3 g/dL (2.2-4.0); Magnesium, Blood 2.1 mg/dL (1.6-2.4); Potassium, Blood 3.5 mmol/L (3.5-5.5); Total Protein, Blood 6.4 g/dL (6.4-8.2)
[2024-06-10] MEDS ORDERED: LevoFLOXacin 750 MG/D5W 150ML 150 ML IV ONE (04:40)
[2024-06-10] MEDS ORDERED: HYDROmorphone HCl/Pf 1MG SYR IV ONE (05:05)
[2024-06-10] MEDS ORDERED: ACET500 PO (05:36)
[2024-06-10] MEDS ORDERED: CIPR500 PO (05:36)
[2024-06-10] MEDS ORDERED: ONDA4 PO (05:37)
[2024-06-10] MEDS ORDERED: Pyridium100 MG PO (06:14)
[2024-06-10] MEDS ORDERED: Phenazopyridine HCl 100 MG Tab PO ONE (06:15)
== END 2024-06-10 06:34 | disposition home or self-care (01) ==
LOC: ER 02:53
PROVIDERS: Emergency Medicine
DX: N12 Tubulo-interstitial nephritis, not specified as acute or chronic (principal); I48.91 Unspecified atrial fibrillation; Z88.0 Allergy status to penicillin; Z88.2 Allergy status to sulfonamides; Z91.040 Latex allergy status; Z88.8 Allergy status to other drugs, medicaments and biological substances
CPT/HCPCS: 74176; 80053; 81001; 81025; 83690; 83735; 85025; A9270; J1171; J1956; J2270; J2405; J7030

== ENCOUNTER → 2024-06-15 | Outpatient (CLI) | payer OTHER ==
[~2024-06-15] MED LIST changes: +ACET500 PO; +CIPR500 PO; +ONDA4 PO; +Pyridium100 MG PO
[2024-06-15 21:12] LABS: Microalbumin, Urine Quant. 20.2 mg/L (0.000-20.000); Protein, Urine Quantitative 12.9 mg/dL (0.0-11.9)
== END | disposition home or self-care (01) ==
LOC: LAB 17:04 → LAB SHORT 17:04 → LAB FUT 06-13 11:35
PROVIDERS: Internal Medicine Nephrology
DX: N18.2 Chronic kidney disease, stage 2 (mild) (principal); D63.1 Anemia in chronic kidney disease; N25.81 Secondary hyperparathyroidism of renal origin; E55.9 Vitamin D deficiency, unspecified; E78.00 Pure hypercholesterolemia, unspecified; R76.9 Abnormal immunological finding in serum, unspecified; R94.5 Abnormal results of liver function studies; R94.6 Abnormal results of thyroid function studies
CPT/HCPCS: 81050; 82043; 82570; 84156

== ENCOUNTER 2024-08-11 07:02 | Emergency (ER) | payer OTHER ==
[~2024-08-11] VITALS: Ht 162.6 cm; Wt 62.1 kg
[2024-08-11] MEDS ORDERED: Ketorolac Tromethamine 30mg Vial IM ONE (09:50)
[2024-08-11] MEDS ORDERED: Dexamethasone Sod Phos 10 MG/ML 1ML VIAL PO ONE (09:50)
[2024-08-11] MEDS ORDERED: HYDROcodone 5-APAP 325 TAB PO ONE (09:50)
[2024-08-11 10:00] VITALS: BP 122/82
[2024-08-11] MEDS ORDERED: Dexamethasone Sod Phos 10 MG/ML 1ML VIAL IV ONE (10:15)
[2024-08-11] MEDS ORDERED: Ketorolac Tromethamine 30mg Vial IV ONE (10:15)
[2024-08-11 10:26] LABS: BASOPHILS ABSOLUTE AUTO 0.05 K/mm3 (0.00-0.23); BASOPHILS PERCENT AUTO 0 % (0-2); EOSINOPHILS ABSOLUTE AUTO 0.25 K/mm3 (0.00-0.68); EOSINOPHILS PERCENT AUTO 2 % (0-6); Hematocrit 32.3 % (33.0-51.0); Hemoglobin 9.7 g/dL (11.5-16.0); IMMATURE GRAN ABSOLUTE AUTO 0.04 K/mm3 (0.00-0.10); IMMATURE GRAN PERCENT AUTO 0 % (0-1); LYMPHOCYTES ABSOLUTE AUTO 1.64 K/mm3 (0.84-5.20); LYMPHOCYTES PERCENT AUTO 15 % (21-46); MONOCYTES ABSOLUTE AUTO 0.68 K/mm3 (0.16-1.47); MONOCYTES PERCENT AUTO 6 % (4-13); Mean Corpuscular HGB 22.6 pg (26.0-34.0); Mean Corpuscular Volume 75 fL (80-100); Mean Platelet Volume 9.1 fL (9.1-12.4); NEUTROPHILS ABSOLUTE AUTO 8.46 K/mm3 (1.96-9.15); NEUTROPHILS PERCENT AUTO 76 % (41-73); Platelet Count 288 K/mm3 (150-400); RDW Coefficient Variation 14.7 % (11.7-14.2); RDW Standard Deviation 39.6 fL (35.1-46.3); White Blood Cell Count 11.12 K/mm3 (4.00-11.30)
[2024-08-11 11:06] LABS: Bun/Creatinine Ratio 21.7 (12.0-20.0); Calcium, Blood 8.3 mg/dL (8.5-10.1); Creatinine, Blood 0.83 mg/dL (0.40-1.00); Potassium, Blood 3.7 mmol/L (3.5-5.5)
[2024-08-11] MEDS ORDERED: METPRE4DP PO (11:18)
[2024-08-11] MEDS ORDERED: HYDR1TAB94 PO (11:18)
== END 2024-08-11 11:51 | disposition home or self-care (01) ==
LOC: ER 07:02
PROVIDERS: Student in an Organized Health Care Education/Training Program
DX: M19.90 Unspecified osteoarthritis, unspecified site (principal); H61.21 Impacted cerumen, right ear; Z88.0 Allergy status to penicillin; Z88.2 Allergy status to sulfonamides; Z91.040 Latex allergy status; Z91.048 Other nonmedicinal substance allergy status; Z79.2 Long term (current) use of antibiotics; Z79.899 Other long term (current) drug therapy; I48.91 Unspecified atrial fibrillation
CPT/HCPCS: 69209; 80048; 85025; 96374-59; 96375-59; 99283-25; A9270; J1100; J1885

== ENCOUNTER 2024-09-29 23:57 | Emergency (ER) | payer OTHER ==
[~2024-09-29] VITALS: Ht 160 cm; Wt 64.9 kg
[~2024-09-29 23:57] MED LIST changes: +HYDR1TAB94 PO; +METPRE4DP PO
[2024-09-30 00:31] LABS: BASOPHILS ABSOLUTE AUTO 0.05 K/mm3 (0.00-0.23); BASOPHILS PERCENT AUTO 1 % (0-2); EOSINOPHILS ABSOLUTE AUTO 0.21 K/mm3 (0.00-0.68); EOSINOPHILS PERCENT AUTO 3 % (0-6); Hematocrit 33.7 % (33.0-51.0); Hemoglobin 9.8 g/dL (11.5-16.0); IMMATURE GRAN ABSOLUTE AUTO 0.03 K/mm3 (0.00-0.10); IMMATURE GRAN PERCENT AUTO 1 % (0-1); LYMPHOCYTES ABSOLUTE AUTO 2.37 K/mm3 (0.84-5.20); LYMPHOCYTES PERCENT AUTO 37 % (21-46); MONOCYTES ABSOLUTE AUTO 0.57 K/mm3 (0.16-1.47); MONOCYTES PERCENT AUTO 9 % (4-13); Mean Corpuscular HGB 22.1 pg (26.0-34.0); Mean Corpuscular HGB Conc 29.1 g/dL (31.5-36.5); Mean Corpuscular Volume 76 fL (80-100); Mean Platelet Volume 9.3 fL (9.1-12.4); NEUTROPHILS ABSOLUTE AUTO 3.15 K/mm3 (1.96-9.15); NEUTROPHILS PERCENT AUTO 49 % (41-73); Platelet Count 286 K/mm3 (150-400); RDW Coefficient Variation 16.3 % (11.7-14.2); RDW Standard Deviation 45.1 fL (35.1-46.3); Red Blood Cell Count 4.43 M/mm3 (3.80-5.20); White Blood Cell Count 6.38 K/mm3 (4.00-11.30)
[2024-09-30 01:03] LABS: Free Thyroxine 0.88 ng/dL (0.70-1.60); Phosphorus, Blood 4.1 mg/dL (2.5-4.9); Thyroid Stimulating Hormone 1.53 uIU/mL (0.360-4.800)
[2024-09-30 01:38] LABS: CORONAVIRUS COVID-19 AG Negative (NEGATIVE); INFLUENZA A AG Negative (NEGATIVE); INFLUENZA B AG Negative (NEGATIVE)
[2024-09-30] MEDS ORDERED: FUROSEMIDE20 MG PO (03:00)
[2024-09-30] MEDS ORDERED: NS 1,000 ML IV SCH (03:10)
[2024-09-30] MEDS ORDERED: Acetaminophen 500 MG Tab PO ONE (03:10)
[2024-09-30 04:30] VITALS: BP 120/90
[2024-09-30 04:44] LABS: Albumin, Blood 3.1 g/dL (3.4-5.0); Albumin/Globulin Ratio 0.9 (0.8-1.8); Bilirubin, Total 0.1 mg/dL (0.1-1.0); Bun/Creatinine Ratio 20.9 (12.0-20.0); Calcium, Blood 8.7 mg/dL (8.5-10.1); Creatinine, Blood 0.77 mg/dL (0.40-1.00); Globulin, Blood 3.3 g/dL (2.2-4.0); Potassium, Blood 4.1 mmol/L (3.5-5.5); Total Protein, Blood 6.4 g/dL (6.4-8.2)
== END 2024-09-30 05:00 | disposition home or self-care (01) ==
LOC: ER 23:57
PROVIDERS: Emergency Medicine; Student in an Organized Health Care Education/Training Program
DX: R55 Syncope and collapse (principal); R53.1 Weakness; R53.83 Other fatigue; I48.91 Unspecified atrial fibrillation; Z88.0 Allergy status to penicillin; Z88.2 Allergy status to sulfonamides; Z91.040 Latex allergy status; Z88.8 Allergy status to other drugs, medicaments and biological substances
CPT/HCPCS: 70450; 71045; 80053; 83690; 83735; 84100; 84439; 84443; 84484; 85025; 87428-QW; 93005; 93010; 96360; 99285-25; A9270; J7030

== ENCOUNTER 2024-12-25 04:52 | Emergency (ER) | payer OTHER ==
[~2024-12-25] VITALS: Ht 162.6 cm; Wt 63.5 kg
[~2024-12-25 04:52] MED LIST changes: +FUROSEMIDE20 MG PO
[2024-12-25] MEDS ORDERED: Ondansetron HCl 2 MG / ML 2ML Vial IV ONE (06:00)
[2024-12-25] MEDS ORDERED: Dexamethasone Sod Phos 10 MG/ML 1ML VIAL PO ONE (06:00)
[2024-12-25] MEDS ORDERED: FentaNYL Citrate 50 MCG/ML 2 ML Injection IV ONE (06:00)
[2024-12-25 06:30] LABS: BASOPHILS ABSOLUTE AUTO 0.03 K/mm3 (0.00-0.23); BASOPHILS PERCENT AUTO 0 % (0-2); EOSINOPHILS ABSOLUTE AUTO 0.10 K/mm3 (0.00-0.68); EOSINOPHILS PERCENT AUTO 1 % (0-6); Hematocrit 34.6 % (33.0-51.0); Hemoglobin 10.5 g/dL (11.5-16.0); IMMATURE GRAN ABSOLUTE AUTO 0.02 K/mm3 (0.00-0.10); IMMATURE GRAN PERCENT AUTO 0 % (0-1); LYMPHOCYTES ABSOLUTE AUTO 1.20 K/mm3 (0.84-5.20); LYMPHOCYTES PERCENT AUTO 17 % (21-46); MONOCYTES ABSOLUTE AUTO 0.65 K/mm3 (0.16-1.47); MONOCYTES PERCENT AUTO 9 % (4-13); Mean Corpuscular HGB Conc 30.3 g/dL (31.5-36.5); Mean Corpuscular Volume 76 fL (80-100); NEUTROPHILS ABSOLUTE AUTO 5.15 K/mm3 (1.96-9.15); NEUTROPHILS PERCENT AUTO 72 % (41-73); NRBC ABSOLUTE 0.00 K/mm3 (0.00-0.02); NRBC Auto 0.0 /100 WBC (0.0-0.2); Platelet Count 240 K/mm3 (150-400); RDW Coefficient Variation 15.7 % (11.7-14.2); RDW Standard Deviation 43.1 fL (35.1-46.3)
[2024-12-25 06:51] LABS: Alanine Aminotransfer (ALT/SGP 14.0 U/L (12-78); Albumin, Blood 3.2 g/dL (3.4-5.0); Albumin/Globulin Ratio 0.9 (0.8-1.8); Anion Gap 8.0 mmol/L (3-11); Aspartate Aminotrans (AST/SGOT 16.0 U/L (12-37); Bilirubin, Total 0.5 mg/dL (0.1-1.0); Blood Urea Nitrogen 17.0 mg/dL (8-24); C-Reactive Protein, High Sens. 4.96 mg/L (0.000-3.000); CO2, Blood 25.0 mmol/L (21-32); Calcium, Blood 8.0 mg/dL (8.5-10.1); Chloride, Blood 108.0 mmol/L (98-108); Creatinine, Blood 0.81 mg/dL (0.40-1.00); Globulin, Blood 3.5 g/dL (2.2-4.0); Glucose, Blood 106.0 mg/dL (70-99); Potassium, Blood 3.6 mmol/L (3.5-5.5); Sodium, Blood 137.0 mmol/L (136-145); Total Protein, Blood 6.7 g/dL (6.4-8.2)
[2024-12-25] MEDS ORDERED: OxyCODONE 5 mg/Acetamin 325 mg TABLET PO ONE (07:10)
[2024-12-25 07:11] LABS: Source, Urine Clean Catch
[2024-12-25 07:13] LABS: Bilirubin, Urine Neg (Neg); Color, Urine Yellow (P-Yellow); Glucose Qualitative, Urine Neg (Neg); Ketones, Urine Neg (Neg); Leukocyte Esterase, Urine Neg (Neg); Protein, Urine 1+ (Neg); Specific Gravity, Urine 1.015 (1.003-1.022); Urobilinogen, Urine NORM (Normal)
[2024-12-25 07:21] VITALS: BP 121/80
[2024-12-25] MEDS ORDERED: HYDR1TAB94 PO (07:23)
[2024-12-25] MEDS ORDERED: PRED20 PO (07:23)
[2024-12-25] MEDS ORDERED: CEPH500 PO (07:23)
== END 2024-12-25 07:49 | disposition home or self-care (01) ==
LOC: ER 04:52
PROVIDERS: Emergency Medicine
DX: M32.9 Systemic lupus erythematosus, unspecified (principal); L66.2 Folliculitis decalvans; L03.90 Cellulitis, unspecified; I48.91 Unspecified atrial fibrillation; I51.81 Takotsubo syndrome; N18.9 Chronic kidney disease, unspecified; Z88.0 Allergy status to penicillin; Z88.2 Allergy status to sulfonamides; Z91.040 Latex allergy status
CPT/HCPCS: 80053; 85025; 85651; 86141; 96374; 96375; 99283-25; A9270; J1100; J2405; J3010

== ENCOUNTER 2025-03-18 00:41 | Emergency (ER) | payer OTHER ==
[~2025-03-18] VITALS: Ht 162.6 cm; Wt 68.0 kg
[~2025-03-18 00:41] MED LIST changes: +CEPH500 PO; +Doxycycline Mo100 M1 PO; +Lisinopril2.5 MG; +POTA8
[2025-03-18 02:00] VITALS: BP 149/90
[2025-03-18] MEDS ORDERED: Robaxin750 MG PO (02:09)
== END 2025-03-18 02:30 | disposition home or self-care (01) ==
LOC: ER 00:41
DX: S13.9XXA Sprain of joints and ligaments of unspecified parts of neck, initial encounter (principal); W18.30XA Fall on same level, unspecified, initial encounter; I48.91 Unspecified atrial fibrillation; Z88.0 Allergy status to penicillin; Z88.2 Allergy status to sulfonamides; Z88.8 Allergy status to other drugs, medicaments and biological substances; Z91.040 Latex allergy status; Z79.899 Other long term (current) drug therapy
CPT/HCPCS: 70450; 72125; 73030; 99284-25; A9270

== ENCOUNTER 2025-03-21 11:31 | Emergency (ER) | payer OTHER ==
[~2025-03-21] VITALS: Ht 162.6 cm; Wt 68.0 kg
[~2025-03-21 11:31] MED LIST changes: +Robaxin750 MG PO
[2025-03-21] MEDS ORDERED: Ondansetron 4 MG SoluTab SL ONE (11:55)
[2025-03-21] MEDS ORDERED: NARCAN4 M1 ×2 (13:20→16:53)
[2025-03-21] MEDS ORDERED: OXAYDO5 M1 PO ×2 (13:20→16:53)
[2025-03-21] MEDS ORDERED: ONDA4ODT SL ×2 (13:20→16:53)
[2025-03-21 13:30] VITALS: BP 125/80
== END 2025-03-21 13:46 | disposition home or self-care (01) ==
LOC: ER 11:31
DX: S42.002A Fracture of unspecified part of left clavicle, initial encounter for closed fracture (principal); Z88.0 Allergy status to penicillin; Z88.2 Allergy status to sulfonamides; Z91.040 Latex allergy status; Z79.899 Other long term (current) drug therapy; I48.91 Unspecified atrial fibrillation; N18.30 Chronic kidney disease, stage 3 unspecified; X58.XXXA Exposure to other specified factors, initial encounter
CPT/HCPCS: 93005; 93010; 99283-25; A9270